=== PATIENT | male | born 1990 | race Caucasian/White ===

== ENCOUNTER 2021-10-07 03:16 | Emergency (ER) | payer MEDICAID ==
[~2021-10-07] VITALS: Ht 167.6 cm; Wt 122.5 kg
[2021-10-07 03:50] VITALS: BP 125/77
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
--- NOTE | 2021-10-07 04:11 | NUR ---
PT IN LOBBY.
--- NOTE | 2021-10-07 04:15 | NUR ---
PT ASSESSED BY ERMD IN TRIAGE.
--- NOTE | 2021-10-07 04:17 | NUR ---
PT IN LOBBY.
[2021-10-07] MEDS ORDERED: ACETAMINOPHEN EXTRA STRENGTH 500 MG TAB PO ONE (04:25)
[2021-10-07] MEDS ORDERED: IBUP-1842 PO (05:43)
[2021-10-07] MEDS ORDERED: ACET-10509 PO (05:43)
[2021-10-07 06:40] VITALS: BP 125/77
--- NOTE | 2021-10-07 06:40 | NUR ---
Patient discharged with v/s stable. Written and verbal after care instructions given and explained. Patient alert, oriented and verbalized understanding of instructions. Ambulatory with steady gait. All questions addressed prior to discharge. ID band removed. Patient advised to follow up with PMD. Rx of TYLENOL AND IBUPROFEN given. Patient educated on indication of medication including possible reaction and side effects. Opportunity to ask questions provided and answered.
== END 2021-10-07 06:40 | disposition home or self-care (01) ==
LOC: MED 03:16
DX: S00.83XA Contusion of other part of head, initial encounter (principal); R07.89 Other chest pain; F10.129 Alcohol abuse with intoxication, unspecified; E11.9 Type 2 diabetes mellitus without complications; Z86.73 Personal history of transient ischemic attack (TIA), and cerebral infarction without residual deficits; Z79.899 Other long term (current) drug therapy; Y04.2XXA Assault by strike against or bumped into by another person, initial encounter; Y93.89 Activity, other specified; Y92.89 Other specified places as the place of occurrence of the external cause; Y99.8 Other external cause status
CPT/HCPCS: 70450; 71045; 99283; 99284